=== PATIENT | male | born 1965 | race Caucasian/White ===

== ENCOUNTER 2024-07-17 14:39 | Inpatient (IN) | payer OTHER, SELFPAY ==
[2024-07-17] VITALS (9 sets, daily range): BP systolic 114–164; BP diastolic 70–104
--- NOTE | 2024-07-17 11:00 | ED.GENMED ---
History of Present Illness
General
Chief Complaint: Cough
Source: patient and family
Time Seen by Provider: 07/17/24 10:42
History of Present Illness
History of Present Illness:
59yoM with a history of hypertension presenting with his daughter for evaluation of shortness of breath. Patient has a chronic cough and has been seen by ENT in the past and was told that he needed sinus surgery. Cough is now productive of yellow
phlegm. Over the past 2 weeks, patient has now developed shortness of breath. He is having trouble sleeping at night due to his symptoms. He also is having wheezing and has lost 4 pounds over the past month. He reports subjective fevers although is
afebrile here. He denies any leg swelling or hemoptysis. He traveled to [facility] and [facility] last month. He was seen at a hospital in [facility] last month for his symptoms and he was treated with clarithromycin without much improvement. He denies any tobacco
use. No history of asthma.
Phy Exam
General Physical Exam
General Presentation: well appearing and no apparent distress
General age: appears stated age
General Skin: warm and dry
General Habitus: normal
General Mental: alert
ENT Exam
ENT Exam: normocephalic
Cardiovascular Exam
Cardiovascular Exam: regular rate/rhythm and no edema
Pulmonary Exam
Pulmonary Exam: no respiratory distress, no rales and other (Diffuse expiratory wheezes noted. Speaking in full sentences without difficulty. )
[place] Coma Scale
Eye Opening: Spontaneous
Verbal Response: Oriented
Motor Response: Obeys Commands
GCS Total Score: 15
Skin Exam
Skin Exam: normal color and warm/dry
Psychiatric Exam
Psychiatric Exam: normal mood/affect
Course
Orders/Labs/Results
Orders:
Orders
07/17/24 09:58
Electrocardiogram (*1) Urgent
Reason for Study: Shortness of Breath
EKG- Treatment ONCE
07/17/24 11:01
Ipratropium/Albuterol Sulfate [Duoneb] 3 ml INH R NOW STA
07/17/24 11:02
CR Chest - 2 Views Urgent
Comment:
Reason For Exam: Cough, SOB
07/17/24 11:25
Complete Blood Count/With Diff Urgent
Comprehensive Metabolic Panel Urgent
D-Dimer Urgent
Troponin I Urgent
07/17/24 13:37
Dexamethasone Sod Phosphate [Decadron] 10 mg IV NOW STA
Ipratropium/Albuterol Sulfate [Duoneb] 3 ml INH R NOW STA
07/17/24 13:41
COVID-19 Antigen Urgent
Source: Nasal Swab
Influenza A+B Rapid Molecular Urgent
RYLIE Source: Nasal Swab
Specimen Description:
Respiratory Syncytial Virus Urgent
RYLIE Source: Nasal Swab
Specimen Description:
Date Specimen was Collected: 07/17/24
Time Specimen was Collected: 13:33
07/17/24 14:23
Admit/Transfer Patient As Directed
Co-Sign Provider:
Level of Care: Inpatient admission
Assign to:: Medical/Surgical
Physician / Group: riccardo russell
Diagnosis: acute hypoxic resp insuff 2/2 viral bronchitis, acute/chron sinusitis
Reason for Hospitalization: acute hypoxic resp insuff 2/2 viral bronchitis, acute/chron sinusitis
Expected length of stay greater than two midnights?: Yes
ELOS- Estimated Length of Stay in days: 4
I certify the patient meets the requirements for IP care: Yes
Code Status As Directed
Resuscitation Status: Full Code
07/17/24 14:25
PRN Pain Medication Management As Directed
May give lesser potent ordered pain med per pt: Yes
preference::
Protocol:: Medication orders for pain may be administered in a
manner that supports deferring to patient preference
when the pt is:
- Requesting an ordered lesser potent pain medication.
Least to most potent pain medications are defined
as: acetaminophen < NSAID < tramadol < opioids
(morphine, oxycodone, hydromorphone).
- Requesting a lesser dose of the same medication IF
ORDERED.
- Requesting a less intrusive route of administration
if both routes are prescribed by the provider (PO <
IV).
07/17/24 14:30
ENT CONSULT Routine
Consulting Provider: Anton Castañeda
Was physician already notified: Yes
Reason for Consult: acute chronic sinusitis hypoxia and viral bronchitis
PULMONARY CONSULT Routine
Consulting Provider: Elvis Ellis
Was physician already notified: Yes
Reason for consult: bronchitis, hypoxia, also sinusitits
07/17/24 14:31
CT Sinuses W/o Iv Contrast Urgent
Comment:
Reason For Exam: sinuse congestion pain
Abnormal Lab Results
07/17/24
11:25
Lymphocytes % 19.1 L %
(20.5-51.1)
Eosinophils % 6.4 H %
(0-6)
Glucose 109 H mg/dl
(70-99)
07/17/24 11:25
07/17/24 11:25
Vital Signs
Initial and Last Documented VS:
Initial Vital Signs
Temp Pulse Resp BP Pulse Ox
98 F 87 16 155/104 92
07/17/24 09:59 07/17/24 09:59 07/17/24 09:59 07/17/24 09:59 07/17/24 09:59
Last Documented Vital Signs
Temp Pulse Resp BP Pulse Ox
98 F 68 12 128/88 96
07/17/24 09:59 07/17/24 13:45 07/17/24 13:45 07/17/24 13:00 07/17/24 13:45
MDM/Problems Addressed
Differential Diagnosis Includes:
59yoM here with SOB and acute on chronic cough. Also c/o wheezing. No hx of asthma or smoking. Oxygen saturation 92% in triage. Remainder of vitals are normal. He is well-appearing in no acute distress. There are diffuse expiratory wheezes on
lung exam although respirations are unlabored. Differential diagnosis includes but is not limited to: Viral illness, bronchitis, pneumonia, bronchospasm, less likely PE, less likely ACS
Initial ED plan: Cardiac labs, D-dimer, EKG x-ray. DuoNeb and reassess.
*EKG
Interpreted by ED Provider?: Yes
EKG Intrepretation Date: 07/17/24
Heart Rate: 75
Rate: normal
Rhythm: sinus
[place]: normal axis
Interval: normal interval
QRS Pattern: normal QRS
Ischemia: no ischemia
*Critical Care Note
Total Time (30-74mins, 75-104mins- exclusive of procedures): Not Applicable
Update Note
Update Note:
Labs overall unremarkable. D-dimer normal making PE very unlikely. EKG shows normal sinus rhythm without ischemic changes and troponin is normal. Chest x-ray is clear without infiltrates. Patient became hypoxic during ED stay to 87 to 88%. He
was placed on 2L NC. Second DuoNeb and IV Decadron ordered. He was admitted for further evaluation management.
ED Attending Note
-
Portions of this chart may have been created with voice recognition software.� Occasional wrong word or��sound alike� substitutions may have occurred due to the inherent limitations of voice recognition software.
Discharge Plan
Departure
Patient Disposition: Admit
Date of Disposition: 07/17/24
Time of Disposition: 13:39
Presentation/result/management discussed w/ accepting MD/DO: Hospitalist
Discharge Problem:
Acute hypoxic respiratory failure, Bronchospasm
Interventions
Interventions:
*Risk Screen - Suicide Last Done: 07/17/24 09:59
*General Assessment Last Done: 07/17/24 09:59
*Neglect/Abuse Screening Last Done: 07/17/24 09:59
*ED COVID-19 Vaccine History Last Done: 07/17/24 11:14
ED- Pulmonary Assessment Last Done: 07/17/24 11:21
[2024-07-17] MEDS: DUONEB 3 ML INH ×3 (11:25→19:52)
[2024-07-17 11:38] LABS: % Basophils 0.8 % (0-2); % Eosinophils 6.4 % (0-6); % Immature Granulocytes 0.2 % (0-0.5); % Lymphocytes 19.1 % (20.5-51.1); % Monocytes 7.7 % (1.7-9.3); % Neutrophils 65.8 % (42.2-75.2); Absolute Basophils 0.1 10^3/uL (0-0.2); Absolute Eosinophils 0.4 10^3/uL (0-0.7); Absolute Lymphocytes 1.2 10^3/uL (1.2-3.4); Absolute Monocytes 0.5 10^3/uL (0.1-0.6); Hemoglobin 15.8 g/dL (13.0-18.0); Mean Corp Hgb Conc. 34.3 g/dL (33.0-37.0); Mean Corpuscular Hgb 30.1 pg (27.0-31.0); Mean Corpuscular Volume 87.6 fL (80.0-94.0); Mean Platelet Volume 9.4 fL (7.4-10.4); Nucleated Red Blood Cells % 0 % (-); Platelet Count 245 10^3/uL (130-400); Red Blood Cell Count 5.25 10^6/uL (4.70-6.10); Red Cell Dist. Width 13.1 % (11.5-14.5); White Blood Cell Count 6.1 10^3/uL (4.8-10.8)
[2024-07-17 11:53] LABS: ALT (SGPT) 35 U/L (0-50); AST (SGOT) 39 U/L (17-59); Albumin 4.9 g/dl (3.5-5.0); Alkaline Phosphatase 47 U/L (38-126); Blood Urea Nitrogen 20 mg/dl (9-20); Carbon Dioxide 28 mmol/L (22-30); Chloride 101 mmol/L (98-107); Glucose 109 mg/dl (70-99); Potassium 4.3 mmol/L (3.5-5.1); Sodium 142 mmol/L (135-145); Total Bilirubin 1.3 mg/dl (0.2-1.3); Total Protein 8.1 g/dl (6.3-8.2); eGFR > 60.00
[2024-07-17 11:54] LABS: D-Dimer < 0.27 ug/mlFEU (0.00-0.50)
[2024-07-17 11:57] LABS: Troponin I < 0.012 ng/ml
--- NOTE | 2024-07-17 13:43 | HPS.HSE ---
Family Physician
-
Family Physician: Joey Novak MD
Chief Complaint
-
sob X2 months, wheezing x2 weeks acute on chronic sinusitis
History of Present Illness
59-year-old Who reports ongoing sinus congestion with postnasal drip for 1 year. He reports he was seen by ENT here in the [facility] and was advised that he needed sinus surgery per abnormal CT of his sinuses. He elected to hold off on this procedure.
He also reports being short of breath for the past 2 months with light activity and feeling very tired in the a.m. He reports this worsened over the past 2 and half weeks when he developed wheezing in addition to his sinus congestion and postnasal
drip. He was in [place] from May 20 to June 03 traveling. He was seen by ENT on May [address] of his sinuses was placed on clarithromycin x 14-day dose finished on 06/12/[address] and was advised he needs sinus
surgery. He reports chills today only denies fever, headache, sore throat, chest pain, palpitations, abdominal pain, nausea, vomiting, diarrhea, urinary symptoms, tobacco use . He has never had outpatient sleep study evaluation completed. He has
past medical history of hypertension, hyperlipidemia, chronic sinusitis.
Medical History
Past Medical History
Past Medical History: Reports Other
Additional Past Medical History:
HTN
HLD
Chronic Sinusitis
Past Surgical History: Reports None
Social History
Tobacco: Non-smoker
Alcohol: None
Drug: None
Personal:
Living: With Family
Employment: Employed
Family History
Family History: Other (father parkisons / dementia , mother living healthy no meds )
Allergies / Home Medications
Allergies reflects when Allergies were last updated in [facility].
Home Medications with original date entered in [facility]
Allergy/Medication List:
Allergies
Allergy/AdvReac Type Severity Reaction Status Date / Time
No Known Allergies Allergy Unverified 07/17/24 09:59
Home Medications
ascorbic acid (vitamin C) 500 mg tablet (Vitamin C) 500 mg PO DAILY 07/17/24
losartan 100 mg-hydrochlorothiazide 12.5 mg tablet 1 tab PO DAILY 07/17/24
rosuvastatin 20 mg tablet (Crestor) 20 mg PO HS 07/17/24
Review of Systems
-
History Source: Patient and Family (daughter )
A 12 point ROS was completed and negative except as noted: Yes
Constitutional: Reports Chills; Denies Fatigue (in am )
EENT: Reports Runny Nose and Other (post nasal drip , sinus point tenderness); Denies Sore Throat
Respiratory: Reports Cough and Trouble Breathing (capps , wheezing )
Cardiac: Denies Chest Pain, Diaphoresis, Palpitations or Syncope
Abdomen/GI: Denies Abdominal Pain, Nausea, Vomiting, Diarrhea, Constipated, Bloody Stools or Black Stools
: Denies Dysuria, Frequency, Flank Pain, Incontinence, Difficulty Voiding, Urgency, Bleeding or Dark Urine
Musculoskeletal: Denies Joint Pain or Edema
Skin: Denies Itching or Rash
Neurological: Denies Dizzy, Headache or Weakness
Endocrine: Reports No Symptoms
Hematologic/Lymphatic: Reports No Symptoms
Psych: Reports Calm
Physical Exam
Vital Signs
Vital Signs
Temp Pulse Resp BP Pulse Ox
98 F 64 16 134/92 98
07/17/24 09:59 07/17/24 11:30 07/17/24 11:17 07/17/24 11:17 07/17/24 11:30
Physical Exam
General: Conversant and Chills; No Pain or Fever
HEENT: NormoCephalic, Anicteric, PERRLA, [place] Conjunctivae, No Ptosis, Neck Nontender, Oxygen (2l nc ) and Other (nose nasal turbinates prominent and red, rhinorrhea, sinus point tenderness ); No Pharyngeal Erythema
Respiratory: Wheezes (bilat Throughout both lung guadalupe); No Rales or Rhonchi
Cardiac: S1/S2 and Regular Rhythm; No Murmur, Rub, Gallop or Peripheral Edema
Breast: Deferred by me
GI: Soft, Non Tender, Non Distended, Normal Bowel Sounds and No Hepatosplenomegaly
Rectal: Deferred by Provider
Genito-urinary: Deferred by me
Musculoskeletal: No Clubbing, No Cyanosis and No Edema
Skin: Warm and Dry; No Rash
Neuro: AO x 3, No Motor Deficits, Nonfocal/grossly intact, Cranial Nerves Intact and No Sensory Deficits; No Slurred Speech, Facial Droop, Tremors or Sedated
Psych: Calm
Laboratory Results
-
07/17/24 11:25
07/17/24 11:25
Laboratory Results
Total Bilirubin 1.3 mg/dl (0.2-1.3) 07/17/24 11:25
AST 39 U/L (17-59) 07/17/24 11:25
ALT 35 U/L (0-50) 07/17/24 11:25
Alkaline Phosphatase 47 U/L (38-126) 07/17/24 11:25
Troponin I < 0.012 ng/ml 07/17/24 11:25
Impression/Plan
-
IMpression/Plan:
Admit to Med Surg
#Acute hypoxic respiratory insufficiency 2/2 likely viral bronchitis Exacerbated by sinusitis
-87-88% RA, 98% 2 LNC
-Check COVID, influenza swab, RSV
-DuoNebs scheduled and as needed
--decadron 4mg q12h
-Consult Pulm
CXR: No acute cardiopulmonary process
#Acute on chronic sinusitis Dx 1 year ago and again May 29, 2024
-Patient treated with clarithromycin 14-day dose 05/29 - 06/12/2024 Prescribed in [place] by ENT
-Will check CT sinuses
-Consult ENT
#HTN�benign
128/88
-Continue losartan 100/HCTZ 25 mg daily
#HLD
Continue Crestor 20 mg at bedtime was recently changed from atorvastatin 20 mg at bedtime
DVT prophylaxis
Subcu Lovenox
Full code
[2024-07-17] MEDS: DECADRON 10 MG IV (13:44)
--- NOTE | 2024-07-17 13:54 | W.PN.UPDATE ---
Update Note
Progress Note Update
This note serves as an addendum to the H&P by magnetic prospecting operator RADHA Carol SALAZAR
59M non smoker HTN pw acute on chronic cough and SOB . Desat to 87-88% requireirng 2L NC.
Reports productive cough with yellow phlegm for 2 weeks
Reports loss 4 lbs over 4 week
No prior HX of asthma
Report visit to [facility] and Dxed severe sinusitis , Tx with Clarithromycin and suggest Sinus suregery
Afebrile, POx as low as 87-88 on RA requiring O2 support
POS wheezing upon arrival which completely resolved with Neb
NEG TPNI
Unremarkable DD
Pending RSV
Pending Covid
NEG Flu
Unremarkable Labs
NEG CXR
ASSESSMENT & PLAN
Productive cough with yellow sputum : chr sinusitis vs asthmatic bronchitis exacerbated by sinusitis
NEG CXR
Associated with acute hypoxia
- agree with IV Decadron and Duo Neb for now
- O2 support to keep POx > 94
- Pul consult
Recently Dxed severe sinusitis in May 2024 during visit to [facility]
Tx with Clarithromycin and suggest Sinus surgery
- CT Sinus
- Hold of ABx
- ENT consult
DVT Px: LMWH
Full code
IP MS
[2024-07-17 14:15] LABS: COVID-19 Antigen Negative (Negative)
--- NOTE | 2024-07-17 15:31 | CON.PUL ---
Consultation
Consultation Request
Date/Time Consultation Requested: 07/17/2024 - 1430
Date/Time Consultation Performed: 07/17/2024 - 151
Requesting Provider: DIONICIO Jimenez
Performing Provider: Elvis Ellis MD
Reason for Consultation: SOB/cough
Medical History
-
Chief Complaint: SOB + cough
History of Present Illness:
59-year-old male with a past medical history of hypertension, hyperlipidemia and chronic sinusitis who presents with cough + congestion and shortness of breath X 2 weeks. Patient's daughter, Fariha, and , Chevy, are present at bedside and all
questions were answered. The patient has been feeling short of breath with activity for the past 2 weeks. He is also been coughing at night and it has been waking him from sleep. He does have worsening phlegm production especially in the morning
in addition to shortness of breath. He does endorse postnasal drip and had seen ENT previously [place] the [place] and was told that he needs surgery but he held off. He was in [place] from late April until mid May and was seen by an ENT while
there and had a CT of the sinuses and was placed onto clarithromycin from 05/29 - 06/12/2024. In the ER he was afebrile to 90 �F, pulse rate 87, breathing at 16 breaths/min, BP 155/104 and saturating 92% on room air. Labs showed an absolute
eosinophil count of 400, negative D-dimer, negative troponin and COVID-19 antigen negative. Flu A/B+ RSV were all negative. CXR showed no acute cardiopulmonary process, and CT sinuses showed moderate�severe mucosal thickening of the bilateral
maxillary/ethmoid sinuses, with mild mucosal thickening of the left sphenoid sinus. He was given Decadron + DuoNebs in the ER, and admitted to the hospitalist service with pulmonary now consulted for additional management/recommendations.
When I saw the patient, he was resting in bed in no acute distress on 2 L/min nasal cannula. He says that he currently feels well but still feels shortness of breath with activity. He has never been diagnosed with asthma in the past. He denies
any recent exposure to any new animals, no construction at home, he has not moved to new residence recently, no new detergents at home, and his only recent travel was in late April, mid-May 2024 from [facility]. He currently denies chest
pain, BUSH, abdominal pain, nausea, vomiting, fevers or chills.
PMHx: Hypertension, hyperlipidemia, chronic sinusitis
PSHx: [place] teeth removal
Past Medical History
Past Medical History: Other (Above as per HPI)
Past Surgical History: Other (Above as per HPI)
Social History
Tobacco: Non-smoker
Alcohol: None
Drug: None
Personal:
Living: With Family
Employment: Employed
Family History
Family History: Other (Father: Parkinson's disease/dementia)
Allergies / Home Medications
Allergies
Allergy/AdvReac Type Severity Reaction Status Date / Time
No Known Allergies Allergy Unverified 07/17/24 09:59
Home Medications
�Medication �Instructions �Recorded �Confirmed �Last Taken �Type
ascorbic acid (vitamin C) 500 mg 500 mg PO DAILY 07/17/24 07/17/24 Unknown History
tablet (Vitamin C)
losartan 100 1 tab PO DAILY 07/17/24 07/17/24 Unknown History
mg-hydrochlorothiazide 12.5 mg
tablet
rosuvastatin 20 mg tablet (Crestor) 20 mg PO HS 07/17/24 07/17/24 07/16/24 21:00 History
Review of Systems
-
History Source: Patient
All other systems: Negative unless noted
Vitals / Labs / Diagnostic Testing
Vital Signs
Temp Pulse Resp BP Pulse Ox
98.1 F 87 15 140/79 96
07/17/24 16:22 07/17/24 20:00 07/17/24 20:00 07/17/24 16:22 07/17/24 20:00
Lab Data
07/17/24 11:25
07/17/24 11:25
Microbiology
07/17/24 13:41 Nasal Swab Respiratory Syncytial Virus Culture - Final
Negative for Respiratory Syncytial Virus.
A false negative result may be obtained with a specimen
collected early in the acute phase. If symptoms persist, a
new specimen should be tested.
07/17/24 13:41 Nasal Swab Influenza Types A & B (MENG) - Final
Negative for Influenza A & B, NAAT
Negative results must be combined with clinical observations
and patient history.
Nucleic Acid Amplification test (NAAT)performed on the
[employer] platform.
Diagnostic Testing:
Physical Exam
-
HEENT: Normocephalic, Anicteric and Moist Mucous Membranes
Cardiovascular: S1/S2 and Peripheral Edema (negative)
Respiratory: Wheeze (Expiratory wheezing heard in the bases bilaterally), Rales (negative), Rhonchi (Scattered rhonchi heard bilaterally) and Other (Diminished breath sounds bilaterally)
GI: Soft, Non Distended, Non Tender and Normal Bowel Sounds
Neurology: AO x 3 and Tremors (negative)
Skin: Warm and Dry
General: Respiratory Distress (negative), Comfortable, Fever (negative) and Chills (negative)
Assessment
-
Assessment: 59-year-old male with a past medical history of hypertension and hyperlipidemia who presents with cough + congestion and shortness of breath X 2 weeks. Patient's daughter, Fariha, and , Chevy, are present at bedside and all
questions were answered. The patient has been feeling short of breath with activity for the past 2 weeks. He is also been coughing at night and it has been waking him from sleep. He does have worsening phlegm production especially in the morning
in addition to shortness of breath. He does endorse postnasal drip and had seen ENT previously [place] the [place] and was told that he needs surgery but he held off. He was in [place] from late April until mid May and was seen by an ENT while
there and had a CT of the sinuses and was placed onto clarithromycin from 05/29 - 06/12/2024. In the ER he was afebrile to 90 �F, pulse rate 87, breathing at 16 breaths/min, BP 155/104 and saturating 92% on room air. Labs showed an absolute
eosinophil count of 400, negative D-dimer, negative troponin and COVID-19 antigen negative. Flu A/B+ RSV were all negative. CXR showed no acute cardiopulmonary process, and CT sinuses showed moderate�severe mucosal thickening of the bilateral
maxillary/ethmoid sinuses, with mild mucosal thickening of the left sphenoid sinus. He was given Decadron + DuoNebs in the ER, and admitted to the hospitalist service with pulmonary now consulted for additional management/recommendations.
Chronic conditions DOCUMENTATION SPECIALIST: Hypertension, hyperlipidemia, chronic sinusitis
Impression:
#Acute shortness of breath with mucus production, nocturnal coughing with elevated absolute eosinophils consistent with asthma with an acute exacerbation
#Suspected acute asthmatic bronchitis
#Increased absolute eosinophil count due to above
#Acute respiratory failure with hypoxia on supplemental oxygen
#Moderate�severe maxillary/ethmoid sinusitis possibly with component of postnasal drip which could be contributing to cough
#History of hypertension
#History of hyperlipidemia
Plan:
- Continue with Decadron 4 mg IV q12hr with eventual transition to OCS taper
- Given concern for asthma, he needs maintenance inhaler with LABA/ICS -I will start him on Symbicort 160mcg with DuoNebs QID
- He should be discharged on a LABA/ICS, and depending on his insurance, he should be started on the higher ICS dosing maintenance inhaler; Breyna 160mcg or symbicort 160mcg should be affordable
- Should also DC with rescue inhaler with Albuterol 90mcg/act MDI q4hr prn SOB/wheezing
- prn nebulized bronchodilators while hospitalized for breakthrough symptoms
- I will arrange for outpatient follow-up with me for full PFTs and continued monitoring/management of his shortness of breath due to suspected asthma
-If SOB persists then we will check repeat CBC with eosinophils, IgE, Aspergillus serology and [facility] allergy panel, however he will need to be off steroids for at least 5 to 7 days prior to testing is done
- Continue with supplemental oxygen and wean down as tolerated maintaining SpO2 >90-94%
- Will give a dose of 1 g of magnesium to see if this helps considering that there is concern for an acute asthmatic exacerbation
- If resting SpO2 on room air is <96%, then check walking pulse oximetry prior to discharge
- ENT is consulted and recommendations are pending
- Given the moderate to severe inflammatory changes in the maxillary/ethmoid sinuses, he will likely be offered surgery
- He apparently had seen 2 ENT doctors in the past and they had also offered surgery but the patient did not go through with it
- Would recommend starting Flonase after discharge, and can consider nasal saline spray during hospitalization
- Incentive spirometer encouraged
- Replete electrolytes with K>4, Mg>2
- Maintain euglycemia with goal BG >100 and <180
- DVT ppx: LMWH
Pulmonary service will continue to follow along.
Data:
CT sinuses without contrast 07/17/2024: Moderate to severe mucosal thickening of the bilateral maxillary and ethmoid sinuses. Mild mucosal thickening of the left sphenoid sinus. Patent bilateral ostiomeatal units
CXR 07/17/2024: No acute cardiopulmonary process
Total time spent today was 58 minutes for this encounter. Time includes reviewing laboratory test/imaging results, reviewing pertinent medical records, obtaining and reviewing medical history, performing an appropriate exam, ordering medications,
tests and procedures. Time also includes documentation of this encounter, coordinating patient care and communicating with other healthcare professionals. Total time does not include separately billed tests performed on this date of service.
[2024-07-17] MEDS: LOVENOX 40 MG SC (17:41)
[2024-07-17] MEDS: SYMBICORT 160/4.5 MCG INHALER 2 PUFF INH (19:52)
[2024-07-17] MEDS: PEPCID 20 MG PO (20:28)
[2024-07-17] MEDS: MAGNESIUM SULFATE 102 GRAMS IV (23:01)
[2024-07-18] MEDS: DECADRON 4 MG IV ×2 (02:01→13:44)
[2024-07-18 07:35] VITALS: BP 130/76
[2024-07-18] MEDS: DUONEB 3 ML INH ×2 (07:58→11:30)
[2024-07-18] MEDS: SYMBICORT 160/4.5 MCG INHALER 2 PUFF INH (07:58)
[2024-07-18] MEDS: PEPCID 20 MG PO (08:23)
[2024-07-18 08:29] LABS: % Basophils 0.1 % (0-2); % Immature Granulocytes 0.4 % (0-0.5); % Lymphocytes 10.3 % (20.5-51.1); % Monocytes 1.8 % (1.7-9.3); % Neutrophils 87.4 % (42.2-75.2); Absolute Lymphocytes 0.9 10^3/uL (1.2-3.4); Absolute Monocytes 0.2 10^3/uL (0.1-0.6); Absolute Neutrophils 7.8 10^3/uL (1.4-6.5); Hemoglobin 14.9 g/dL (13.0-18.0); Mean Corp Hgb Conc. 33.9 g/dL (33.0-37.0); Mean Corpuscular Volume 88.7 fL (80.0-94.0); Nucleated Red Blood Cells % 0 % (-); Platelet Count 240 10^3/uL (130-400); Red Blood Cell Count 4.96 10^6/uL (4.70-6.10); Red Cell Dist. Width 13.1 % (11.5-14.5); White Blood Cell Count 8.9 10^3/uL (4.8-10.8)
[2024-07-18 08:44] LABS: Blood Urea Nitrogen 20 mg/dl (9-20); Calcium 9.2 mg/dl (8.4-10.2); Carbon Dioxide 26 mmol/L (22-30); Chloride 102 mmol/L (98-107); Glucose 148 mg/dl (70-99); Magnesium 2.3 mg/dl (1.6-2.3); Phosphorus 4.4 mg/dl (2.5-4.5); Potassium 4.3 mmol/L (3.5-5.1); Sodium 140 mmol/L (135-145); eGFR > 60.00
--- NOTE | 2024-07-18 08:50 | W.PN.HOSP.TC ---
Today's Communication/Plan
-
See PN
Home O2 assessment
Assessment / Plan
Assessment / Plan
59yo M with HTN, HLD came with 3 weeks of progressive SOB, managed for possible asthma exacerbation as evidenced by perypheral eosynophilia. Has long standing Hx of nnasal congestion (for years), found chronic sinusitis on CT. Was previously
recommneeded for sinus surgery.
A/P:
#Acute respiratory insufficiency most likely 2/2 asthma exacerbation
#postnasal drip 2.2 chronic sinusitis (suspect allergic)
Taper steroids, Zpack for antiinflammatory properties
Will need d/c on Symbicort
Outpatient pulm follow up
walking pulse O2 before d/c
#Chronic sinusitis
most likely allergic
Zyrtec
ENT consult
DVT ppx lovenox
FUll code
I have spent at least 58min reviewing chart, test results, communication with consultantants and direct patient care
Anticipated Discharge: Within 24 hours
Subjective/Interval History
-
Date of Service: July 18, 2024
Objective Data
-
Labs:
Laboratory Results
07/18/24
07:17
WBC 8.9
Hgb 14.9
Hct 44.0
Plt Count 240
Sodium 140
Potassium 4.3
Chloride 102
Carbon Dioxide 26
BUN 20
Creatinine 0.8
Glucose 148 H
Calcium 9.2
Vital Signs:
Vital Signs
Temp Pulse Resp BP Pulse Ox
98.4 F 95 16 130/76 95
07/18/24 07:35 07/18/24 08:02 07/18/24 08:02 07/18/24 07:35 07/18/24 08:02
I&O
07/17/24 07/18/24 07/19/24
06:59 06:59 06:59
Intake Total 200 / 200
Balance 200 / 200
Review of Systems
-
History Source: Patient
All other systems: Reviewed and negative
Physical Exam
-
General: No Apparent Distress
HEENT: Normocephalic
Respiratory: Clear to Auscultation; Negative Wheezes or Crackles
Cardiac: Regular Rhythm and S1/S2; Negative Murmur
GI: Soft, Nontender and Nondistended
Genito-urinary: No Costovertebral Tender
Musculoskeletal: No Clubbing, No Cyanosis and No Edema
Skin: Warm; Negative Rash or Ulcers
Neuro: Awake, Alert, Oriented and AO x 3
Psych: Calm
--- NOTE | 2024-07-18 09:40 | W.PN.PUL3 ---
Today's Communication / Plan
-
Doing remarkably well
No home O2 needed per home O2 walk test
DC home on prednisone taper starting at 40mg and reduce by 10mg every 4th dya until off
DC on Symbicort 160mcg or Breo 200mcg or Dulera 200mcg - all depends on his insurance coverage
DC on Albuterol MDI 90mcg/act 1-2 puffs q4hr prn SOB/wheezing
Outpatient office follow up will be arranged for symptomatic management of suspected asthma and full PFTs + FeNO
He should also follow up with ENT to discuss FESS
Pulmonary service will now sign off. Please call back with any questions/concerns.
Assessment
-
Assessment: 59-year-old male with a past medical history of hypertension and hyperlipidemia who presents with cough + congestion and shortness of breath X 2 weeks. Patient's daughter, Fariha, and , Chevy, are present at bedside and all
questions were answered. The patient has been feeling short of breath with activity for the past 2 weeks. He is also been coughing at night and it has been waking him from sleep. He does have worsening phlegm production especially in the morning
in addition to shortness of breath. He does endorse postnasal drip and had seen ENT previously here in the [place] and was told that he needs surgery but he held off. He was in [place] from late April until mid May and was seen by an ENT while
there and had a CT of the sinuses and was placed onto clarithromycin from 05/29 - 06/12/2024. In the ER he was afebrile to 90 �F, pulse rate 87, breathing at 16 breaths/min, BP 155/104 and saturating 92% on room air. Labs showed an absolute
eosinophil count of 400, negative D-dimer, negative troponin and COVID-19 antigen negative. Flu A/B+ RSV were all negative. CXR showed no acute cardiopulmonary process, and CT sinuses showed moderate�severe mucosal thickening of the bilateral
maxillary/ethmoid sinuses, with mild mucosal thickening of the left sphenoid sinus. He was given Decadron + DuoNebs in the ER, and admitted to the hospitalist service with pulmonary now consulted for additional management/recommendations.
Chronic conditions [employer]: Hypertension, hyperlipidemia, chronic sinusitis
Impression:
#Acute shortness of breath with mucus production, nocturnal coughing with elevated absolute eosinophils consistent with asthma with an acute exacerbation
#Suspected acute asthmatic bronchitis
#Increased absolute eosinophil count due to above
#Acute respiratory failure with hypoxia requiring supplemental oxygen, now on room air
#Moderate�severe maxillary/ethmoid sinusitis possibly with component of postnasal drip which could be contributing to cough
#History of hypertension
#History of hyperlipidemia
Plan:
- Continue with systemic steroids -->currently on Decadron 4 mg IV q12hr, and transition to OCS taper today given he is being prepared for discharge --> start 40mg daily and reduce by 10mg every 4th day until off
- Given concern for asthma, he needs maintenance inhaler with LABA/ICS - continue Symbicort 160mcg with DuoNebs QID --> DC home on Symbicort or Breyna 160mcg; if insurance does not cover this then we can use Breo 200mcg or Dulera 200 or even
Advair 250mcg, he should also go home on Albuterol MDI 90mcg/act q4hr prn SOB/wheezing
- prn nebulized bronchodilators while hospitalized for breakthrough symptoms
- I will arrange for outpatient follow-up with me for full PFTs and continued monitoring/management of his shortness of breath due to suspected asthma
-If SOB persists then an an outpatient I can check IgE, Aspergillus serology, CBC with eosinophils and [facility] allergy panel, however he will need to be off steroids for at least 5 to 7 days prior to testing is done
- he is now off supplemental oxygen and on room air breathing comfortably
- He performed O2 walk test today desaturated to 92% on room air --> no home O2 needed at this point
- Maintain SpO2 >90-94%
- s/p dose of 1 g of magnesium given there is concern for an acute asthmatic exacerbation
- ENT is consulted and recommendations are appreciated
- Given the moderate to severe inflammatory changes in the maxillary/ethmoid sinuses, he was offered functional endoscopic sinus surgery --> this is an ongoing discussion between him and ENT
- He apparently had seen 2 ENT doctors in the past and they had also offered surgery but the patient did not go through with it
- Would recommend starting Flonase after discharge, and also continue nasal saline spray during hospitalization and after discharge
- Incentive spirometer encouraged
- Replete electrolytes with K>4, Mg>2
- Maintain euglycemia with goal BG >100 and <180
- DVT ppx: LMWH
Pulmonary service now will sign off as pt being prepared for DC home. I will arrange for office follow up with me (see above). Please call back with any questions. Thank you for allowing me to be involved in the care of this patient.
Data:
CT sinuses without contrast 07/17/2024: Moderate to severe mucosal thickening of the bilateral maxillary and ethmoid sinuses. Mild mucosal thickening of the left sphenoid sinus. Patent bilateral ostiomeatal units
CXR 07/17/2024: No acute cardiopulmonary process
Total time spent today was 36 minutes for this encounter. Time includes reviewing laboratory test/imaging results, reviewing pertinent medical records, obtaining and reviewing medical history, performing an appropriate exam, ordering medications,
tests and procedures. Time also includes documentation of this encounter, coordinating patient care and communicating with other healthcare professionals. Total time does not include separately billed tests performed on this date of service.
Subjective Data
-
Date of Service:
Date of Service: July 18, 2024
Chief Complaint: Pulmonary Follow Up
Subjective:
Patient was seen and evaluated today at bedside. He is in better spirits, smiling and speaking to me without coughing and feels like his shortness of breath is much better. Ambulatory pulse oximetry performed today and gege saturation was 92% on
room air - no home O2 needed at this time. He still has an intermittent dry cough but overall feels markedly improved and is being prepared for discharge home today. He denies chest pain, BUSH, nausea, vomiting, fevers or chills.
Review of Systems
General: Other (Negative unless mentioned above)
Objective Data
Data Reviewed
Vital Signs / I&O / Oxygen:
Vital Signs
Temp Pulse Resp BP Pulse Ox
98.4 F 95 16 130/76 95
07/18/24 07:35 07/18/24 08:02 07/18/24 08:02 07/18/24 07:35 07/18/24 08:02
Intake and Output
07/17/24 07/18/24 07/19/24
06:59 06:59 06:59
Intake Total 200 / 200
Balance 200 / 200
SaO2 95
Nasal Cannula flow liters per 2
minute
Physical Exam
General: Respiratory Distress (negative) and Comfortable
HEENT: Normocephalic and Anicteric
Cardiovascular: S1-S2 and Peripheral Edema (negative)
Respiratory: Wheeze (negative), Crackles (negative), Rhonchi (negative), Non-Labored Respirations and Other (Slightly diminished inspiratory effort)
GI: Soft, Non Distended, Non Tender and Normal Bowel Sounds
Neurology: AO x 3 and Tremors (negative)
Skin: Warm, Dry, Cyanosis (negative) and Jaundice (negative)
Labs/Micro/Reports
Lab Data
07/18/24 07:17
07/18/24 07:17
Microbiology
07/17/24 13:41 Nasal Swab Respiratory Syncytial Virus Culture - Final
Negative for Respiratory Syncytial Virus.
A false negative result may be obtained with a specimen
collected early in the acute phase. If symptoms persist, a
new specimen should be tested.
07/17/24 13:41 Nasal Swab Influenza Types A & B (MENG) - Final
Negative for Influenza A & B, NAAT
Negative results must be combined with clinical observations
and patient history.
Nucleic Acid Amplification test (NAAT)performed on the
[employer] platform.
--- NOTE | 2024-07-18 10:02 | RESPNOTE ---
home O2 assessment completed on RA. pt did not require O2 with ambulation, lowest O2 sat 92%
[2024-07-18] MEDS: ZYRTEC 10 MG PO (10:40)
[2024-07-18] MEDS: ZITHROMAX 500 MG PO (10:40)
[2024-07-18 10:44] VITALS: BP 113/79; BP 151/82; PULSE 101; O2SAT 95
--- NOTE | 2024-07-18 11:03 | CON.MD ---
Consultation - Medical
-
dictated.
Acute/chronic sinusitis, probably related to reactive airways disease
Will restart nasal saline irrigations.
Start a nasal steroid spray.
Plans d/c on zithromax.
Recommend FESS, risks explained, f/u as outpt if wishes to proceed.
--- NOTE | 2024-07-18 13:00 | W.DCSUMMARY ---
Discharge Summary
Discharge Data
Date of Admission: 07/17/24
Date of Discharge: 07/18/24
-
Pending Results: No
Hospital Course
59yo M with HTN, HLD came with 3 weeks of progressive SOB, managed for possible asthma exacerbation as evidenced by perypheral eosynophilia. Has long standing Hx of nnasal congestion (for years), found chronic sinusitis on CT. Was previously
recommended for sinus surgery. Referral for ENT provided. Recommendations by ENT and General Manager followed. Patient remained on room air on the day of discharge. Medically stable for d/c. Referrals to handbag framer for PFT and ENT for surgical
intervention provided
I have spemnt at least 38min discharging the patient
Patient was managed for:
#Acute respiratory insufficiency most likely 2/2 asthma exacerbation
#postnasal drip 2.2 chronic sinusitis (suspect allergic)
#Chronic sinusitis
#Essential HTN
Discharge Plan
-
Patient Disposition: Home (Routine Discharge)
Discharge Diagnosis/Procedures: Sinusitis
Diet: Regular
Activity: No strenuous activity
Driving Restrictions: As prior to admission
Referrals:
Elvis Ellis MD [Active] - in three to four weeks
(Call daughter (Fariha) at: [phone] to arrange for follow up.
full PFTs on day of office visit; also check FeNO)
Anton Castañeda MD [Active] - in two to four weeks
Joey Novak MD [Family Provider] -
Prescriptions:
New
budesonide-formoterol [Symbicort] 160-4.5 mcg/actuation Hfa Aerosol Inhaler
2 puff inhalation R BID Qty: 120 0RF
cetirizine 10 mg Tablet
10 mg PO DAILY Qty: 30 0RF
azithromycin 250 mg Tablet
250 mg PO DAILY Qty: 4 0RF
albuterol sulfate 90 mcg/actuation HFA aerosol inhaler
2 puff inhalation Q4H PRN (Reason: shortness of breath or wheezing) Qty: 8.5 0RF
methylprednisolone [Medrol (Jasvir)] 4 mg tablets,dose pack
See Rx Instructions .ROUTE .COMPLEX Qty: 21 0RF
Rx Instructions:
for 6 days
fluticasone propionate [Flonase Allergy Relief] 50 mcg/actuation spray,suspension
1 spray intranasal Q12H Qty: 16 0RF
Continued
ascorbic acid (vitamin C) [Vitamin C] 500 mg Tablet
500 mg PO DAILY
losartan-hydrochlorothiazide 100-12.5 mg Tablet
1 tab PO DAILY
rosuvastatin [Crestor] 20 mg Tablet
20 mg PO HS
Discharge Orders:
Discharge Patient (As Directed); Ordered 07/18/24
Ordered By: Addy Walker
Discharge Date and Time
Print Language: KOSOVAN
[2024-07-18 13:30] VITALS: BP 127/68
--- NOTE | 2024-07-18 16:25 | CM ---
Alert awake oriented patient who lives with his Duy who lives in a 2 story home with 2 step to enter and 20 steps to bed and bathroom. He is independent in driving and in all activities of daily living.He was offered VN he declined need.
No VN hx / No SNF history
Pharm[facility]
PCP DR Novak
PLAN Home Declined VN
--- NOTE | 2024-07-20 13:19 | W.PN.UPDATE ---
Update Note
Progress Note Update
Symbicort not covered - called pharmacy and prescribed Advair 250 1 puff BID
== END 2024-07-18 14:02 | disposition home or self-care (01) | DRG 203 ==
LOC: 3 WEST ACU 14:39
PROVIDERS: Clinical Nurse Specialist Family Health; Physician Assistant; ADMITTING PHYSICIAN Internal Medicine; ATTENDING PHYSICIAN Internal Medicine; CONSULT PHYSICIAN Internal Medicine Critical Care Medicine; CONSULT PHYSICIAN Otolaryngology; EMERGENCY PHYSICIAN Emergency Medicine; FAMILY PHYSICIAN Internal Medicine
DX: J45.901 Unspecified asthma with (acute) exacerbation (principal); I10 Essential (primary) hypertension; E78.5 Hyperlipidemia, unspecified; J01.00 Acute maxillary sinusitis, unspecified; J32.0 Chronic maxillary sinusitis; J01.20 Acute ethmoidal sinusitis, unspecified; J32.2 Chronic ethmoidal sinusitis; R06.89 Other abnormalities of breathing; R09.02 Hypoxemia; Z79.899 Other long term (current) drug therapy; Z11.52 Encounter for screening for COVID-19
CPT/HCPCS: 70486; 71046; 80048; 80053; 83735; 84100; 84484; 85025; 85379; 87502; 87807; 87811; 93005; 94640; 96374; 97162; 99285

== ENCOUNTER 2024-10-11 06:11 | Day surgery (SDC) | payer OTHER, SELFPAY ==
[2024-10-11] VITALS (7 sets, daily range): BP systolic 110–127; BP diastolic 64–82; BMI 24.6
[2024-10-11] MEDS: NORMOSOL-R/PLASMALYTE-A 1000 IV (06:28)
== END 2024-10-11 10:46 | disposition home or self-care (01) ==
LOC: SDS 06:11
PROVIDERS: ATTENDING PHYSICIAN Otolaryngology
DX: J32.9 Chronic sinusitis, unspecified (principal)
CPT/HCPCS: 31276; 31257; 31256; 88304; 88311; 88312